=== PATIENT | female | born 1950 | race Caucasian/White ===

== ENCOUNTER 2020-02-28 01:00 | Outpatient (CLI) | payer MEDICARE, SELFPAY ==
[2020-02-28 17:34] LABS: SARS-CoV-2 RNA PCR Negative
== END 2020-02-28 01:01 | disposition home or self-care (01) ==
LOC: ANHCOVIDDT 01:01
PROVIDERS: PCP Internal Medicine; Visit Provider Internal Medicine Gastroenterology
DX: Z01.812 Encounter for preprocedural laboratory examination (principal); Z11.59 Encounter for screening for other viral diseases
CPT/HCPCS: 87635; C9803; U0003

== ENCOUNTER 2020-03-01 01:34 | Day surgery (SDC) | payer MEDICARE, SELFPAY ==
[2020-02-26 16:05] VITALS: BMI 28.5
[2020-03-01 09:45] VITALS: BP 133/75; PULSE 76; RESP 18; TEMP 36.3; O2SAT 99; BMI 28.5
--- NOTE | 2020-03-01 10:07 | P.PNAN_ITS ---
Anes - Initial Pre Proc Eval Procedure: Operation Date: 03/01/20 11:00 Proposed Procedures p Esophagogastroduodenoscopy & Colonoscopy - Joseph Borges MD Date/Time: 03/01/20 10:07 Surgeon: Joseph Borges MD Pre Op Diagnosis: Iron Deficiency Anemia Patient Data Age: 69 Gender: F Height: 1.73 m Weight: 85 kg Allergies Allergy/AdvReac Type Severity Reaction Status Date / Time bee pollen Allergy Unknown ANAPHYLAXIS Verified 03/01/20 10:11 codeine Allergy Unknown Hives Verified 03/01/20 10:11 erythromycin base Allergy Unknown Hives Verified 03/01/20 10:11 penicillin G Allergy Unknown HIVES Verified 03/01/20 10:11 Penicillins Allergy Unknown Hives Verified 03/01/20 10:11 Sulfa (Sulfonamide Allergy Unknown Hives Verified 03/01/20 10:11 Antibiotics) GARLIC Allergy Unknown THROAT Uncoded 03/01/20 10:11 SWELLING Home Medications Medication Instructions Recorded Confirmed Type bimatoprost 0.01 % eye drops 1 drop EACH EYE DAILY 11/17/19 02/26/20 History gabapentin 300 mg capsule 300 mg PO .qhs cap 11/17/19 02/26/20 History mecobalamin (vitamin B12) 1,000 1,000 mcg PO DAILY 11/17/19 02/26/20 History mcg chewable tablet multivitamin 1 tablet PO DAILY 11/17/19 02/26/20 History omega-3 fatty acids 1,000 mg 4,000 mg PO DAILY cap 11/17/19 02/26/20 History capsule atorvastatin 20 mg tablet 20 mg PO DAILY #90 tablet 12/14/19 03/01/20 Rx Patient hx anesthesia problems: none Family hx anesthesia problems: none PMFSH Past Medical History Medical History Cataracts, bilateral Cervical cancer Chicken pox Colon cancer Glaucoma HLD (hyperlipidemia) Hypercholesterolemia Measles Mumps MVP (mitral valve prolapse) Pneumonia Spine injury twisted lower 7 of spine TIA (transient ischemic attack) 1985 Torn muscle torn back muscles (shoulder to hips) Uterus cancer Vitamin D deficiency Surgical History Surgical History (Updated 11/17/19 @ 07:23 by Ashley Sabillon PLUSH WEAVER) H/O: hysterectomy 1970 History of colon resection 12cm removed Family History Family History (Updated 11/17/19 @ 07:24 by Ashley Sabillon CMA) Sibling TIA (transient ischemic attack) Father Cancer Mother Hypertension TIA (transient ischemic attack) Diabetes mellitus Social History Social History (Updated 11/17/19 @ 08:00 by Ashley Sabillon CMA) Smoking status: Former smoker Smoking end date: 09/06/12 Alcohol intake: never Gender identity (if verbalized by the patient): Female Anes - Eval Final PreProcedure Day of Procedure 03/01/20 10:07 Patient weight: overweight Heart: regular rate and rhythm Lungs: clear to auscultation and normal air movement Airway: Mallampati scale class III Neurological: alert and oriented Last oral intake: >/= 8 hours ASA classification: III Emergent: no Anesthetic plan: proceed Anesthesia type and monitoring: general GIVS and standard monitoring Informed Consent: The patient's anesthetic plan and its attendant risks and benefits were discussed with the patient/family/POA. Questions were solicited and answers provided to the satisfaction of the patient/family/POA.
--- NOTE | 2020-03-01 10:14 | PM.HPGS ---
History of Present Illness History of Present Illness Consent: Risks, benefits, and alternatives have been discussed and questions answered. Patient agrees to proceed with procedure. Chief complaint: Iron Deficiency Anemia Narrative: Yvonne Bridges is a 69 year old W female referred for gastroscopy and colonoscopy secondary to acute drop in her hemoglobin hematocrit. Patient has had occasional hematochezia. She does have a history of colon cancer with left hemicolectomy in 2015 stage IIIB. Patient received chemotherapy. There is no evidence recurrent disease. Patient's last colonoscopy was a year ago no abnormalities were noted except for internal hemorrhoids retained suture at the colorectal anastomosis. Patient does have chronic heartburn she takes [id number] medicine on a p.r.n. basis. She has never had upper endoscopy before. She was noted to have a large hiatal hernia on the CT scan by her report. Patient denies any dysphagia odynophagia. [facility] Past Medical History Medical History Cataracts, bilateral Cervical cancer Chicken pox Colon cancer Glaucoma HLD (hyperlipidemia) Hypercholesterolemia Measles Mumps MVP (mitral valve prolapse) Pneumonia Spine injury twisted lower 7 of spine TIA (transient ischemic attack) 1985 Torn muscle torn back muscles (shoulder to hips) Uterus cancer Vitamin D deficiency Surgical History Surgical History (Updated 11/17/19 @ 07:23 by Ashley Sabillon CMA) H/O: hysterectomy 1969 History of colon resection 12cm removed Family History Family History (Updated 11/17/19 @ 07:24 by Ashley Sabillon CMA) Sibling TIA (transient ischemic attack) Father Cancer Mother Hypertension TIA (transient ischemic attack) Diabetes mellitus Social History Social History (Updated 11/17/19 @ 08:00 by Ashley Sabillon CMA) Smoking status: Former smoker Smoking end date: 09/06/12 Alcohol intake: never Gender identity (if verbalized by the patient): Female Meds Home Medications and Allergies Home Medications Medication Instructions Recorded Confirmed Type bimatoprost 0.01 % eye drops 1 drop EACH EYE DAILY 11/17/19 02/26/20 History gabapentin 300 mg capsule 300 mg PO .qhs cap 11/17/19 02/26/20 History mecobalamin (vitamin B12) 1,000 1,000 mcg PO DAILY 11/17/19 02/26/20 History mcg chewable tablet multivitamin 1 tablet PO DAILY 11/17/19 02/26/20 History omega-3 fatty acids 1,000 mg 4,000 mg PO DAILY cap 11/17/19 02/26/20 History capsule atorvastatin 20 mg tablet 20 mg PO DAILY #90 tablet 12/14/19 03/01/20 Rx Allergies Allergy/AdvReac Type Severity Reaction Status Date / Time bee pollen Allergy Unknown ANAPHYLAXIS Verified 03/01/20 10:11 codeine Allergy Unknown Hives Verified 03/01/20 10:11 erythromycin base Allergy Unknown Hives Verified 03/01/20 10:11 penicillin G Allergy Unknown HIVES Verified 03/01/20 10:11 Penicillins Allergy Unknown Hives Verified 03/01/20 10:11 Sulfa (Sulfonamide Allergy Unknown Hives Verified 03/01/20 10:11 Antibiotics) GARLIC Allergy Unknown THROAT Uncoded 03/01/20 10:11 SWELLING Exam Const: Orientation/consciousness: patient oriented x3 Resp: Auscultation: clear to auscultation bilaterally Cardio: Rate: regular rate Rhythm: regular rhythm Heart sounds: no murmurs GI: GI Palp: Yes Soft to palpation, No Tenderness to palpation present (GI), Yes No hepatosplenomegaly present and No Palpable mass present Auscultation: normal bowel sounds Neuro: General: patient oriented x3 and no focal motor deficits Extrem: General: no pedal edema Assessment and Plan Additional Plan EGD and colonoscopy for evaluation of anemia
[2020-03-01] MEDS: LACTATED RINGERS 1,000 ML 150 ML IV CONT (10:30)
[2020-03-01 11:58] VITALS: BP 100/57; PULSE 55; RESP 27; O2SAT 100
[2020-03-01 12:08] VITALS: BP 113/62; PULSE 53; RESP 19; O2SAT 100
[2020-03-01 12:18] VITALS: BP 126/67; PULSE 52; RESP 16; O2SAT 100
--- NOTE | 2020-03-01 12:55 | SUR.PHASEII ---
PATIENT'S SPOUSE'S PHONE NUMBER WAS GIVEN TO DR SANCHEZ PER HIS REQUEST, SPOUSE STATED NO ONE CALLED HIM PRIOR TO PATIENT'S DISCHARGE
== END 2020-03-01 12:35 | disposition home or self-care (01) ==
PROVIDERS: PCP Internal Medicine; Visit Provider Internal Medicine Gastroenterology
PROC: 0DJ08ZZ Inspection of Upper Intestinal Tract, Via Natural or Artificial Opening Endoscopic (ICD-10-PCS; CPT 43235; principal; 2020-03-01 11:00)
DX: D64.9 Anemia, unspecified (principal); K31.9 Disease of stomach and duodenum, unspecified; K44.9 Diaphragmatic hernia without obstruction or gangrene; K22.2 Esophageal obstruction; K21.0 Gastro-esophageal reflux disease with esophagitis; K31.89 Other diseases of stomach and duodenum; K64.8 Other hemorrhoids; Z85.038 Personal history of other malignant neoplasm of large intestine; E78.5 Hyperlipidemia, unspecified; Z92.21 Personal history of antineoplastic chemotherapy; Z92.3 Personal history of irradiation
CPT/HCPCS: 43239; 45378; 88305; J2704; J7120

== ENCOUNTER 2020-04-26 08:28 | Outpatient (CLI) | payer MEDICARE, SELFPAY ==
--- NOTE | 2020-04-26 08:34 | EST_ITS ---
Patient Info Name: Yvonne Bridges Age: 69 years : 1950 Gender: Female Ht: 68 in Wt: 190 lbs BSA: 2.05 m2 Exam Date: 04/26/2020 8:51 AM Exam Location: [facility] [place] [facility] Patient Status: Outpatient Admit Date: 04/26/2020 Staff Ordering Physician: Concepción Davis NP Attending Provider: Concepción Davis NP Exercise Technologist: Sushma Walter RDCS Exercise Physician: Santosh Gonzales DO Exam Type: CA stress test treadmill Study Info Indications R94.31 - Abnormal electrocardiogram ECG EKG A treadmill exercise stress test was performed. Summary 1. 1. Negative Reed exercise stress test for ischemic ST changes by ECG criteria. 2. 2. Good functional capacity, achieving 7 METs of workload. 3. 3. Baseline hypertension with hypertensive response to exercise. 4. 4. Appropriate HR response to exercise. 5. 5. Appropriate HR recovery at 1 minute post exercise. 6. 6. No imaging with stress testing. 7. 7. Patient informed of the above results. Protocol: Reed Stress ECG Details Stage: REST Duration (min): 7 min : 51 sec Speed (mph): 0.0 Grade (%): 0 HR (bpm): 62 SBP (mmHg): 143 DBP (mmHg): 69 METS: --- Stage: REST Duration (min): 9 min : 33 sec Speed (mph): 0.0 Grade (%): 0 HR (bpm): 65 SBP (mmHg): 143 DBP (mmHg): 69 METS: --- Stage: REST Duration (min): 10 min : 28 sec Speed (mph): 0.0 Grade (%): 0 HR (bpm): 65 SBP (mmHg): 143 DBP (mmHg): 69 METS: --- Stage: REST Duration (min): 12 min : 0 sec Speed (mph): 0.0 Grade (%): 0 HR (bpm): 76 SBP (mmHg): 143 DBP (mmHg): 69 METS: --- Stage: STAGE 1 Duration (min): 1 min : 0 sec Speed (mph): 1.7 Grade (%): 10 HR (bpm): 92 SBP (mmHg): 143 DBP (mmHg): 69 METS: --- Stage: STAGE 1 Duration (min): 2 min : 0 sec Speed (mph): 1.7 Grade (%): 10 HR (bpm): 109 SBP (mmHg): 143 DBP (mmHg): 69 METS: --- Stage: STAGE 1 Duration (min): 3 min : 0 sec Speed (mph): 1.7 Grade (%): 10 HR (bpm): 119 SBP (mmHg): 163 DBP (mmHg): 65 METS: --- Stage: STAGE 2 Duration (min): 1 min : 0 sec Speed (mph): 2.5 Grade (%): 12 HR (bpm): 131 SBP (mmHg): 163 DBP (mmHg): 65 METS: --- Stage: STAGE 2 Duration (min): 2 min : 0 sec Speed (mph): 2.5 Grade (%): 12 HR (bpm): 141 SBP (mmHg): 193 DBP (mmHg): 65 METS: --- Stage: STAGE 2 Duration (min): 2 min : 0 sec Speed (mph): 2.5 Grade (%): 12 HR (bpm): 141 SBP (mmHg): 193 DBP (mmHg): 65 METS: --- Stage: RECOVERY Duration (min): 0 min : 59 sec Speed (mph): 0.0 Grade (%): 0 HR (bpm): 134 SBP (mmHg): 193 DBP (mmHg): 65 METS: --- Stage: RECOVERY Duration (min): 1 min : 59 sec Speed (mph): 0.0 Grade (%): 0 HR (bpm): 113 SBP (mmHg): 207 DBP (mmHg): 62 METS: ---
== END 2020-04-26 08:29 | disposition home or self-care (01) ==
PROVIDERS: PCP Internal Medicine; Visit Provider Nurse Practitioner
DX: R94.31 Abnormal electrocardiogram [ECG] [EKG] (principal)
CPT/HCPCS: 93017

== ENCOUNTER 2020-04-29 07:50 | Outpatient (CLI) | payer MEDICARE, SELFPAY ==
--- NOTE | ~2020-04-29 | US_ITS ---
EXAMINATION: US retroperitoneal comp DATE: 04/29/2020 08:55 INDICATION: Essential hypertension. TECHNIQUE: Multiple ultrasound grayscale images of the kidneys were obtained. COMPARISON: None. FINDINGS: The right kidney measures 9.1 x 4.4 x 4.5 cm. The left kidney measures 8.7 x 4.0 x 4.1 cm. The kidney s demonstrate normal echogenicity. There is no hydronephrosis in either kidney. No stones identified . The bladder is normal. No elevated velocities identified in the bilateral renal arteries to suggest hemodynamically significant stenosis. See separate retroperitoneal duplex Doppler ultrasound report for further detail. IMPRESSION: 1. Normal kidneys without hydronephrosis. Reviewed, dictated and finalized at location A.
--- NOTE | ~2020-04-29 | US_ITS ---
EXAMINATION: US retroperitoneal duplex ltd EXAM DATE: 04/29/2020 08:55 INDICATION: Elevated blood pressure. TECHNIQUE: Multiple grayscale and Doppler images of the kidneys and renal arteries were obtained. T here is no prior study for comparison. FINDINGS: The aorta peak systolic velocity is 97 cm/s. The right renal artery peak systolic velocity is 78 cm/s in the proximal segment, 121 cm/s in the mid segment, and 171 cm/s in the distal segment. The left r enal artery peak systolic velocity is 72 cm/s in the proximal segment, 71 cm/s in the mid segment, an d 70 cm/s in the distal segment. IMPRESSION: Renal artery Doppler velocities within normal limits. Reviewed, dictated and finalized at location A.
== END 2020-04-29 07:51 | disposition home or self-care (01) ==
PROVIDERS: PCP Internal Medicine; Visit Provider Nurse Practitioner
DX: I10 Essential (primary) hypertension (principal)
CPT/HCPCS: 76770; 93976

== ENCOUNTER 2020-07-23 11:42 | Outpatient (CLI) | payer MEDICARE, SELFPAY ==
--- NOTE | ~2020-07-23 | XR_ITS ---
XR chest 2V DATE: 07/23/2020 12:06 INDICATION: Cough TECHNIQUE: PA and lateral views COMPARISON: None FINDINGS: There is a large hiatal hernia. Normal heart size. Aortic calcification. No hilar or mediastinal enlargement. No pulmonary infiltrate or consolidation, pleural effusion or pulmonary vascular congestion or pneumothorax. There is scoliosis and degenerative change of the thoracic and lumbar spine. Moderate osteopenia is s uggested. IMPRESSION: No active cardiopulmonary disease Aortic atherosclerotic calcification Hiatal hernia Reviewed, dictated and finalized at location B. E EXAMINER
== END 2020-07-23 11:43 | disposition home or self-care (01) ==
PROVIDERS: PCP Internal Medicine; Visit Provider Clinical Nurse Specialist
DX: R05 Cough (principal); R06.02 Shortness of breath
CPT/HCPCS: 71046

== ENCOUNTER 2023-10-25 03:52 | Emergency (ER) | payer MEDICARE, SELFPAY ==
[2023-10-25] VITALS (8 sets, daily range): BP systolic 101–112; BP diastolic 42–57; PULSE 70; RESP 20; TEMP 36.4; O2SAT 93–100
--- NOTE | ~2023-10-25 | XR_ITS ---
Right wrist Technique: PA, oblique, lateral, and ulnar deviation views were obtained. Clinical History: Injury Findings: There is a comminuted fracture of the distal radius, with intra-articular extension and mil d articular surface step-off. There is dorsal angulation as well as significant dorsal displacement o n lateral view. There is posttraumatic positive ulnar variance. No other fracture evident. Soft tissu es are unremarkable. Impression: Comminuted, displaced, intra-articular fracture of the distal radius, as detailed above. Posttraumatic positive ulnar variance. Reviewed, dictated and finalized at location M. SETTER Impression: Comminuted, displaced, intra-articular fracture of the distal radius, as detail ed above. Posttraumatic positive ulnar variance.
--- NOTE | ~2023-10-25 | XR_ITS ---
Right wrist Technique: PA, oblique, lateral, and ulnar deviation views were obtained. Clinical History: Post reduction COMPARISON: 10/25/2023 at 4:38 AM Findings: Comminuted intra-articular fracture of the distal radius is again present. There is improve d alignment following closed reduction, though there is persistent significant dorsal displacement an d dorsal angulation. Posttraumatic positive ulnar variance is reduced, and alignment of the DRUJ is i mproved. Soft tissues are unremarkable. Impression: Improved alignment of comminuted intra-articular fracture of the distal radius following closed reduc tion, however there is persistent dorsal displacement and dorsal angulation. Reviewed, dictated and finalized at location M. ER ERECTOR AND SERVICER Impression: Improved alignment of comminuted intra-articular fracture of the distal radius following closed reduction, however there is persistent dorsal displacement and dorsal angulation.
[2023-10-25 04:24] LABS: Glucose Point of Care 196 mg/dl (65-105)
--- NOTE | 2023-10-25 04:39 | ED.GENADULT ---
HPI - General Adult General Chief complaint: Extremity Injury, Upper Stated complaint: Fall, R wrist pain Time Seen by Provider: 10/25/23 04:27 History of Present Illness HPI narrative: 73-year-old female presenting to the emergency department for evaluation of right wrist pain. Patient states she was getting into bed and fell backwards striking her head on the dresser and injuring her right wrist. Related Data Home Medications Medication Instructions Recorded Confirmed bimatoprost 0.01 % eye drops 1 drop ophthalmic (eye) DAILY 11/17/19 10/25/23 (Lumigan) gabapentin 300 mg capsule 300 mg PO .qhs 11/17/19 10/25/23 mecobalamin (vitamin B12) 1,000 1,000 mcg PO DAILY 11/17/19 10/25/23 mcg chewable tablet multivitamin 1 tablet PO DAILY 11/17/19 10/25/23 omega-3 fatty acids 1,000 mg 4,000 mg PO DAILY 11/17/19 10/25/23 capsule (Fish Oil Concentrate) Allergies Allergy/AdvReac Type Severity Reaction Status Date / Time bee pollen Allergy Unknown ANAPHYLAXIS Verified 10/25/23 15:54 codeine Allergy Unknown Hives Verified 10/25/23 15:54 erythromycin base Allergy Unknown Hives Verified 10/25/23 15:54 penicillin G Allergy Unknown HIVES Verified 10/25/23 15:54 Penicillins Allergy Unknown Hives Verified 10/25/23 15:54 Sulfa (Sulfonamide Allergy Unknown Hives Verified 10/25/23 15:54 Antibiotics) GARLIC Allergy Unknown THROAT Uncoded 10/25/23 15:54 SWELLING Review of Systems Review of Systems: All systems reviewed & are unremarkable except as noted in HPI and below PMFSH Past Medical History Medical History (Updated 10/26/23 @ 00:00 by [facility] Daemon) Anemia Cataracts, bilateral Cervical cancer Chicken pox Colon cancer Glaucoma HLD (hyperlipidemia) Hypercholesterolemia Measles Mumps MVP (mitral valve prolapse) Pneumonia Spine injury twisted lower 7 of spine TIA (transient ischemic attack) 1985 Torn muscle torn back muscles (shoulder to hips) Uterus cancer Vitamin D deficiency Surgical History Surgical History (Updated 11/17/19 @ 07:23 by Ashley Sabillon CMA) H/O: hysterectomy 1969 History of colon resection 12cm removed Family History Family History (Updated 11/17/19 @ 07:24 by Ashley Sabillon CMA) Sibling TIA (transient ischemic attack) Father Cancer Mother Hypertension TIA (transient ischemic attack) Diabetes mellitus Social History Social History (Updated 11/17/19 @ 08:00 by Ashley Sabillon CMA) Smoking status: Former smoker Smoking end date: 09/06/12 Alcohol intake: never Gender identity (if verbalized by the patient): Female Exam Narrative: APPEARANCE: Well appearing, no pain, no distress, well-nourished. HEAD: normocephalic, atraumatic. EYES: PERRLA/EOMI, conjunctivae clear. NOSE: Normal no drainage NECK: Supple. No adenopathy, no masses. RESPIRATORY: Airway patent, respirations nonlabored. Clear to auscultation bilaterally, no rales, rhonchi, wheezing. CARDIOVASCULAR: Regular rate and rhythm without murmurs rubs or gallops. ABDOMINAL: Soft, nontender, nondistended, normal bowel sounds MUSCULOSKELETAL: Tenderness to right wrist with deformity. Neurovascularly intact NEURO: Alert. Cranial nerves II through XII intact. grossly intact SKIN: Warm, dry. Normal Color PSYCHIATRIC: Normal affect/mood. Course Vital Signs Vital signs: Vital Signs Temperature 97.6 F 10/25/23 03:55 Pulse Rate 70 10/25/23 03:55 Respiratory Rate 20 10/25/23 03:55 Blood Pressure 104/42 L 10/25/23 03:55 Pulse Oximetry 99 10/25/23 03:55 Oxygen Delivery Room Air 10/25/23 03:55 Temperature 97.6 F 10/25/23 03:55 Pulse Rate 70 10/25/23 03:55 Respiratory Rate 20 10/25/23 03:55 Blood Pressure 101/57 L 10/25/23 05:31 Pulse Oximetry 100 10/25/23 05:32 Oxygen Delivery Room Air 10/25/23 03:55 Procedures Orthopedic Fracture Reduction Fracture #1: Time Out Performed: Yes Side: right Fracture Reduction
[2023-10-25] MEDS: fentaNYL CITRATE INJ (*CRX) 100 MCG/2 ML VIAL 50 MCG IV PUSH (04:50)
[2023-10-25] MEDS: HYDROmorphone HCL INJ (*CRX) 1 MG/ML SYR 0.5 MG IV PUSH (05:19)
[2023-10-25] MEDS: HYDROcodone/acetaminophen (*CRX) 5-325 MG TABLET 1 TAB PO (05:58)
== END 2023-10-25 06:10 | disposition home or self-care (01) ==
LOC: ANHED 05:53
PROVIDERS: Emergency Provider Emergency Medicine; PCP Family Medicine
DX: S52.571A Other intraarticular fracture of lower end of right radius, initial encounter for closed fracture (principal); I34.1 Nonrheumatic mitral (valve) prolapse; E78.00 Pure hypercholesterolemia, unspecified; E55.9 Vitamin D deficiency, unspecified; H40.9 Unspecified glaucoma; Z86.2 Personal history of diseases of the blood and blood-forming organs and certain disorders involving the immune mechanism; Z85.41 Personal history of malignant neoplasm of cervix uteri; Z85.42 Personal history of malignant neoplasm of other parts of uterus; Z87.01 Personal history of pneumonia (recurrent); Z86.73 Personal history of transient ischemic attack (TIA), and cerebral infarction without residual deficits; Z87.891 Personal history of nicotine dependence; Z90.710 Acquired absence of both cervix and uterus; Z90.49 Acquired absence of other specified parts of digestive tract; W06.XXXA Fall from bed, initial encounter
CPT/HCPCS: 25605; 73080; 73110; 82948; 96374; 96375; 99285; A4565; A9270; J1170; J3010

== ENCOUNTER 2023-10-25 16:27 | Outpatient (CLI) | payer MEDICARE, OTHER, SELFPAY ==
--- NOTE | ~2023-10-25 | XR_ITS ---
EXAM: XR elbow RT min 3V DATE: 10/25/2023 16:43 HISTORY: S52.509A - Unspecified fracture of the lower end of unspe... . COMPARISON: X-ray right wrist, same date. FINDINGS: Normal mineralization. No fracture or dislocation. No lytic or blastic lesion. Joint space s are maintained. No erosion or periosteal change. Displaced anterior fat pad. IMPRESSION: Right elbow joint effusion which can accompany occult radial head fractures in a patient of this age. Reviewed, dictated and finalized at location K. CTOR OF NEUROLOGY IMPRESSION: Right elbow joint effusion which can accompany occult radial head f ractures in a patient of this age.
== END 2023-10-25 16:28 | disposition home or self-care (01) ==
PROVIDERS: PCP Family Medicine; Visit Provider Plastic Surgery
DX: S52.501A Unspecified fracture of the lower end of right radius, initial encounter for closed fracture (principal); M25.421 Effusion, right elbow; X58.XXXA Exposure to other specified factors, initial encounter
CPT/HCPCS: 73080

== ENCOUNTER 2023-10-27 00:41 | Day surgery (SDC) | payer MEDICARE, SELFPAY ==
[2023-10-26 12:48] VITALS: BMI 25.0
--- NOTE | 2023-10-26 13:09 | PC.NURSE ---
Report to the Outpatient Waiting Room, entrance under the green pavilion located off [facility], at time __6:00AM on date __10/27/23 . Planned Procedure Time: ___7:30AM . Time changes happen often and if your time is changed the preop area will call you the afternoon before. - You and your visitor will be asked to self-screen and do not enter if you have any COVID symptoms. - A mask is optional within the hospital at this time. - No FOOD OR DRINK 8 HOURS PRE-OP, LAST INTAKE 11:30PM 10/26/23. Take the following medications with a SIP of water the morning of surgery: ____EYE DROPS. HYDROCODONE NEEDED FOR PAIN. DO NOT STOP ANY OF YOUR OTHER PRESCRIPTION MEDICATIONS PRIOR TO SURGERY ?EXCEPT THE FOLLOWING Medications to discontinue per physician ___HOLD ALL VITAMINS/SUPPLEMENTS 3 DAYS PRE-OP PER ANESTHESIA- STARTING NOW(10/26/23)__ Please no make-up, nail sammarinese, hairspray, perfume, deodorant, or body powder the day of surgery. No jewelry (including any body piercings) or valuables the day of surgery, leave them at home. Please take a shower or bath the night before, or the morning of, surgery with an antibacterial soap. Wear comfortable, loose fitting clothing. - Jewelry must be removed prior to entering the operating room. Rings and piercings that are not removed may be cut off. - The hospital will not accept responsibility for valuables. - Please leave all valuables, including medications, at home the day of surgery. If you are going home after surgery, a licensed bulk driver must drive you home. - NO public transportation without another adult if you receive anesthesia. - We recommend that an adult stay with you for 24 hours following discharge. - We also recommend that you do not drive, make important decision, drink alcoholic beverages, or take any drugs that were not prescribed by your health care provider for at least 24 hours after your discharge time. Follow any additional instructions given to you from your surgeon. If you or anyone in your household have experienced Covid symptoms in the past week, please notify your surgeon or the nurse liaison at the phone number below for possible testing. Telephone instructions given to ____PATIENT and asked if any additional questions and then verbalized understanding. Patient advised to call surgeon office or pre surgery nurse liaison [phone] if any additional questions.
[2023-10-27] VITALS (10 sets, daily range): BP systolic 105–141; BP diastolic 42–70; PULSE 53–73; RESP 12–20; TEMP 36.1–36.3; O2SAT 95–100
--- NOTE | ~2023-10-27 | XR_ITS ---
EXAMINATION: XR surgery orthopedic DATE: 10/27/2023 09:09 INDICATION: ORIF distal right radial fracture TECHNIQUE: 3 fluoroscopic images of the right wrist were obtained during procedure performed by Dr. Lotus kellogg. Radiologist was not present for the imaging or procedure. The amount of fluoroscopy time u sed during this procedure was 1.8 minutes. COMPARISON: 10/25/2023 FINDINGS: Initial image redemonstrates the posteriorly and radially displaced fracture of the distal radial met aphysis. Final image demonstrates reduction to near-anatomic alignment on the lateral projection with volar plate and screw fixation. IMPRESSION: 1. Near-anatomic alignment post volar plate and screw fixation of a distal right radial fracture. Reviewed, dictated and finalized at location A. [employer]PER[employer]OR IMPRESSION: 1. Near-anatomic alignment post volar plate and screw fixation of a distal righ t radial fracture.
--- NOTE | 2023-10-27 05:50 | ECG_ITS ---
Measurements Intervals [place] Rate: 71 P: 58 TN: 161 QRS: 52 QRSD: 84 T: 28 QT: 404 QTc: 439 Interpretive Statements SINUS RHYTHM WITH OCCASIONAL SUPRAVENTRICULAR PREMATURE COMPLEXES POOR R-WAVE PROGRESSION BORDERLINE ECG NO PREVIOUS ECG AVAILABLE FOR COMPARISON Electronically Signed On 10-27-2023 16:22:37 MANAGER IT SECURITY by Naeem Hernandez M.D.
[2023-10-27] MEDS: LACTATED RINGERS 1,000 ML 30 ML IV CONT ×2 (06:45→09:28)
--- NOTE | 2023-10-27 06:45 | WPDANESEPPF ---
Anes - Initial Pre Proc Eval Procedure: Operation Date: 10/27/23 07:30 Proposed Procedures p Open Reduction Internal Fixation Right Distal Radius Fracture - Femi Perez MD Date/Time: 10/27/23 06:45 Surgeon: Femi Perez MD Pre Op Diagnosis: unspec lower radius fax Patient Data Age: 73 Gender: F Height: 1.78 m Weight: 79 kg Allergies Allergy/AdvReac Type Severity Reaction Status Date / Time bee pollen Allergy Unknown ANAPHYLAXIS Verified 10/27/23 06:17 codeine Allergy Unknown Hives Verified 10/27/23 06:17 erythromycin base Allergy Unknown Hives Verified 10/27/23 06:17 Penicillins Allergy Unknown Hives Verified 10/27/23 06:17 Sulfa (Sulfonamide Allergy Unknown Hives Verified 10/27/23 06:17 Antibiotics) GARLIC Allergy Unknown THROAT Uncoded 10/27/23 06:17 SWELLING Home Medications Medication Instructions Recorded Confirmed Type bimatoprost 0.01 % eye drops 1 drop ophthalmic (eye) QAM 11/17/19 10/26/23 History (Lumigan) mecobalamin (vitamin B12) 1,000 1,000 mcg PO DAILY 11/17/19 10/26/23 History mcg chewable tablet multivitamin 1 tablet PO DAILY 11/17/19 10/26/23 History atorvastatin 20 mg tablet See Rx Instructions .Route 04/20/22 10/26/23 Rx .COMPLEX #90 tabs hydrocodone 5 mg-acetaminophen 325 1 tablet PO Q12H PRN pain #14 tabs 10/25/23 10/26/23 Rx mg tablet icosapent ethyl 1 gram capsule 2 g PO BID 10/26/23 10/26/23 History (Vascepa) lisinopril 10 mg tablet 10 mg PO HS 10/26/23 10/26/23 History metformin 500 mg tablet 500 mg PO BID 10/26/23 10/26/23 History omeprazole 40 mg capsule,delayed 40 mg PO DAILY 10/26/23 10/26/23 History release Patient hx anesthesia problems: none Family hx anesthesia problems: none Results Review: All pre-operative results and documents have been reviewed as part of the pre-operative evaluation. [facility], LAT[facility] Past Medical History Medical History Anemia Cataracts, bilateral Cervical cancer Chicken pox Colon cancer Glaucoma HLD (hyperlipidemia) Hypercholesterolemia Measles Mumps MVP (mitral valve prolapse) Pneumonia Spine injury twisted lower 7 of spine TIA (transient ischemic attack) 1985 Torn muscle torn back muscles (shoulder to hips) Uterus cancer Vitamin D deficiency Surgical History Surgical History H/O: hysterectomy 1969 History of colon resection 12cm removed Family History Family History Sibling TIA (transient ischemic attack) Father Cancer Mother Hypertension TIA (transient ischemic attack) Diabetes mellitus Social History Social History Smoking packs per day: 1 Smoking cigarettes per day: 20.0 Years smoked: 40 Smoking pack-years: 40.00 Smoking status: Former smoker Tobacco type: cigarettes Smoking end date: 03/06/12 Alcohol intake: never Living arrangements: with family Additional living arrangements comments: [place] Gender identity (if verbalized by the patient): Female Spiritual care concerns: No Anes - Eval Final PreProcedure Day of Procedure 10/27/23 06:45 Patient weight: normal Heart: regular rate and rhythm Lungs: clear to auscultation Airway: Mallampati scale class III Neurological: alert and oriented Last oral intake: >/= 8 hours ASA classification: IV Emergent: no Anesthetic plan: proceed Anesthesia type and monitoring: general LMA and standard monitoring Results Review: All pre-operative results and documents have been reviewed as part of the pre-operative evaluation. Informed Consent: The patient's anesthetic plan and its attendant risks and benefits were discussed with the patient/family/POA. Questions were solicited and answers provided to the satisfaction of the patient/family/POA.
--- NOTE | 2023-10-27 07:00 | PM.HPGS ---
History of Present Illness History of Present Illness Chief complaint: unspec lower radius fax Narrative: Patient seen and examined in pre-operative holding area. No interval change in medical history or symptoms. Patient recalls previous discussion of benefits and alternatives to procedure. Continues to desire to proceed with right distal radius open reduction internal fixation. Reviewed procedure, post-op expectations and risks including but not limited to bleeding, infection, injury to tendon/nerve/vessel, decreased hand function, stiffness, RSD, no change or worsening of symptoms, malunion, nonunion, hardware complications. I discussed the possible use of assistants and their participation in the case. Patient stated understanding and signed the consent form wishing to proceed. [facility] Past Medical History Medical History Anemia Cataracts, bilateral Cervical cancer Chicken pox Colon cancer Glaucoma HLD (hyperlipidemia) Hypercholesterolemia Measles Mumps MVP (mitral valve prolapse) Pneumonia Spine injury twisted lower 7 of spine TIA (transient ischemic attack) 1985 Torn muscle torn back muscles (shoulder to hips) Uterus cancer Vitamin D deficiency Surgical History Surgical History H/O: hysterectomy 1969 History of colon resection 12cm removed Family History Family History Sibling TIA (transient ischemic attack) Father Cancer Mother Hypertension TIA (transient ischemic attack) Diabetes mellitus Social History Social History Smoking packs per day: 1 Smoking cigarettes per day: 20.0 Years smoked: 40 Smoking pack-years: 40.00 Smoking status: Former smoker Tobacco type: cigarettes Smoking end date: 03/06/12 Alcohol intake: never Living arrangements: with family Additional living arrangements comments: [place] Gender identity (if verbalized by the patient): Female Spiritual care concerns: No Meds Home Medications and Allergies Home Medications Medication Instructions Recorded Confirmed Type bimatoprost 0.01 % eye drops 1 drop ophthalmic (eye) QAM 11/17/19 10/26/23 History (Boni) mecobalamin (vitamin B12) 1,000 1,000 mcg PO DAILY 11/17/19 10/26/23 History mcg chewable tablet multivitamin 1 tablet PO DAILY 11/17/19 10/26/23 History atorvastatin 20 mg tablet See Rx Instructions .Route 04/20/22 10/26/23 Rx .COMPLEX #90 tabs hydrocodone 5 mg-acetaminophen 325 1 tablet PO Q12H PRN pain #14 tabs 10/25/23 10/26/23 Rx mg tablet icosapent ethyl 1 gram capsule 2 g PO BID 10/26/23 10/26/23 History (Vascepa) lisinopril 10 mg tablet 10 mg PO HS 10/26/23 10/26/23 History metformin 500 mg tablet 500 mg PO BID 10/26/23 10/26/23 History omeprazole 40 mg capsule,delayed 40 mg PO DAILY 10/26/23 10/26/23 History release Allergies Allergy/AdvReac Type Severity Reaction Status Date / Time bee pollen Allergy Unknown ANAPHYLAXIS Verified 10/27/23 06:17 codeine Allergy Unknown Hives Verified 10/27/23 06:17 erythromycin base Allergy Unknown Hives Verified 10/27/23 06:17 Penicillins Allergy Unknown Hives Verified 10/27/23 06:17 Sulfa (Sulfonamide Allergy Unknown Hives Verified 10/27/23 06:17 Antibiotics) GARLIC Allergy Unknown THROAT Uncoded 10/27/23 06:17 SWELLING
--- NOTE | 2023-10-27 07:00 | W.PM.PROC2 ---
Procedure Note - Detailed Date of Procedure 10/27/23 Pre-op Diagnosis right distal radius fracture Post-op Diagnosis Same Procedure Performed open reduction internal fixation right distal radius fracture Surgeon Femi Perez MD Per Assessment Nurse Marzena Deutsch PA-C Anesthesia General Description of Procedure INFORMED CONSENT: The patient was seen and examined and marked in the pre-op area.? The patient signed the consent form. PROCEDURE IN DETAIL:The patient taken back to OR on the stretcher in supine position. Time out performed with anesthesia, surgeon and staff agreeing on patient's name site and surgery to be performed SCDs were placed on the lower extremities and inflated. A tourniquet was placed on {right} upper extremity and antibiotics given IV After anesthesia administered sedation I injected {10}cc 1%lido with epi and 0.5% marcaine plain at the operative site The?{right upper extremity}?was prepped and draped in sterile fashion the??{right upper extremity} was? exsanguinated with Esmarch bandage and tourniquet inflated to 250mmHg I proceeded with making a longitudinal incision (volar noe approach) with 15 blade through skin and dermis over the right FCR tendon. Littler scicsors were used to spread down to the tendon which was retracted ulnarly. I made an incision in the floor of the FCR sheath protecting neurovascular bundle and retracting radially throughout the procedure. I spread down to the pronator quadratus. I incised the PQ along the radial side and used a calles elevator to free the PQ and expose the fracture line. I released brachioradialis. I proceeded with reduction and provisional placement of a 0.045 k-wire. Reduction was verified with mini c-arm. I proceeded with placing an Arthrex narrow right volar distal radius plate and tacking it into place with BB tack and k-wire. Plate placement was checked on fluoro then I proceeded with securing the plate in standard fashion using 2.4mm screws and pegs locking distally and proximal 3.5mm locking and cortical screws. Multiple views of fluoro were used noting maintenance of reduction, no proud screws and no intrarticular placement. After this was completed the k-wires and BB tacks were removed and further exam with fluoro noting maintenance of reduction and good hardware placement. the DRUJ appeared stable. I irrigated with normal saline and proceeded with closure using 3-0 vicryl and 4-0 monocryl. 7cc of 1%lido and 0.5%marcaine plain were injected for median, ulnar and radial nerve blocks. A dressing of Dermabond, 4x4, jacob, and a volar splint was applied for patient safety, security, and comfort and secured with an jenn bandage after the tourniquet was let down noting the hand was warm and well perfused. The patient was then awaken from anesthesia and transferred to the recovery room in stable condition.? Complications - none EBL- 0cc Disposition - home in stable conditions Marzena Deutsch PA-C was essential for positioning, retraction ,manipulation, closure and dressing placement [facility] Billing Surgery - Charge Forward: Surgery Billing ([id number] same for marzena buenrostro )
[2023-10-27 07:06] LABS: Anion Gap 6 mmol/L (8-16); Blood Urea Nitrogen 15 mg/dL (7-17); Calcium 9.3 mg/dL (8.4-10.2); Carbon Dioxide 27 mmol/L (22-30); Chloride 105 mmol/L (98-107); Estimated CRCL calculation 52 ml/min; Estimated Glomerular Filt Rate > 60; Glucose 155 mg/dL (65-110); Sodium 138 mmol/L (137-145)
--- NOTE | 2023-10-27 07:25 | P.HPUP_ITS ---
History and Physical Update Update Date/Time: 10/27/23 07:25 Patient seen and examined in pre-operative holding area. No interval change in medical history or symptoms. Patient recalls previous discussion of benefits and alternatives to procedure. Continues to desire to proceed with right distal raidus open reduction internal fixation. Reviewed procedure, post-op expectations and risks including but not limited to bleeding, infection, injury to tendon/nerve/vessel, decreased hand function, stiffness, RSD, no change or worsening of symptoms, malunion, nonunion, hardware complications. I discussed the possible use of assistants and their participation in the case. Patient sta ashlee understanding and signed the consent form wishing to proceed.
[2023-10-27] MEDS: ceFAZolin 2 GM/D5W 50 ML 2 GM/50 ML BAG IVPB (07:30)
[2023-10-27] MEDS: BUPivacaine HCL 0.5% PF 30 ML VIAL 10 ML INFILTRATE (07:55)
[2023-10-27] MEDS: LIDOCAINE HCL 1% LOCAL INJ 20 ML VIAL 10 ML INFILTRATE (07:56)
[2023-10-27 09:25] LABS: Glucose Point of Care 137 mg/dl (65-105)
[2023-10-27] MEDS: fentaNYL CITRATE INJ (*CRX) 100 MCG/2 ML VIAL 25 MCG IV PUSH ×4 (09:26→09:53)
[2023-10-27] MEDS: ONDANSETRON INJ 4 MG/2 ML VIAL IV PUSH (09:41)
[2023-10-27] MEDS: oxyCODONE HCL (*CRX) 2.5 MG TAB IR PO (10:33)
== END 2023-10-27 11:16 | disposition home or self-care (01) ==
PROVIDERS: Anesthesiology; PCP Family Medicine; Visit Provider Plastic Surgery
PROC: (CPT 25607; principal; 2023-10-27 07:30)
DX: S52.501A Unspecified fracture of the lower end of right radius, initial encounter for closed fracture (principal); T14.90XA Injury, unspecified, initial encounter; E78.5 Hyperlipidemia, unspecified; E55.9 Vitamin D deficiency, unspecified; Z86.73 Personal history of transient ischemic attack (TIA), and cerebral infarction without residual deficits; Z85.41 Personal history of malignant neoplasm of cervix uteri; Z85.038 Personal history of other malignant neoplasm of large intestine
CPT/HCPCS: 25607; 36415; 80048; 82948; 93005; 99199; A9270; C1769; J0690; J1100; J1596; J2250; J2371; J2405; J2704; J3010; J7120

== ENCOUNTER 2023-11-04 08:30 | Outpatient (RCR) | payer MEDICARE, SELFPAY ==
--- NOTE | 2023-11-04 09:41 | OTOPEVAL1 ---
Assessment and note entered by Oliver Faye, LICHAR/Ping, CHT Evaluation Information Assessment Status Evaluation Diagnosis Right distal radius fracture s/p ORIF Subjective Information Patient underwent an ORIF on 10/27/23. She presents to therapy for instructions on hand ROM. She is right handed. She reports she is writing (typing) a book and has been doing this as well as finger ROM already. She feels like her hand is doing very well and that the swelling has reduced since surgery. Assessment OT Clinical Summary Patient presents today, 8 days following an ORIF for a right distal radius fracture. She presents with very minimal residual edema and stiffness in the fingers. She has been issued an active ROM HEP for the fingers and thumb and completes with excellent understanding. No further follow up visits were scheduled at this time. Plan to wait until we receive updated orders to begin wrist motion. These treatments will address the objective and functional deficits as defined above. The patient will be advanced safely and appropriately in order for the patient to progress towards his/her prior level of function. Additional exercises will be introduced and as well as a comprehensive home exercise program upon discharge, if needed, ?to ensure carryover of functional gains achieved in the clinic. This treatment plan has been reviewed and agreement upon by the patient.
== END 2023-11-04 11:28 | disposition home or self-care (01) ==
LOC: ANHOT 08:30
PROVIDERS: PCP Family Medicine; Visit Provider Physician Assistant Surgical
DX: S52.551D Other extraarticular fracture of lower end of right radius, subsequent encounter for closed fracture with routine healing (principal)
CPT/HCPCS: 97110; 97165

== ENCOUNTER 2023-11-16 14:58 | Outpatient (CLI) | payer MEDICARE, OTHER, SELFPAY ==
--- NOTE | ~2023-11-16 | XR_ITS ---
EXAM: XR wrist RT min 3V DATE: 11/16/2023 15:18 HISTORY: POST OP 1-2 WKS FOR WRIST FX . COMPARISON: 10/25/2023; 10/27/2023. FINDINGS: Decreased mineralization. Screw and plate fixation of the distal right radial fracture in near-anatomic alignment. Uncomplicated hardware. No new acute fracture or dislocation. No lytic or bl astic lesion. Joint spaces are mild scattered degenerative changes. No erosion or periosteal change. Soft tissues within normal limits. IMPRESSION: Osteopenia. Screw and plate fixation of the distal right radius, no radiographic evidence of hardware related complication. Reviewed, dictated and finalized at location K.
== END 2023-11-16 14:59 | disposition home or self-care (01) ==
PROVIDERS: PCP Family Medicine; Visit Provider Physician Assistant Surgical
DX: M85.88 Other specified disorders of bone density and structure, other site (principal); S52.501A Unspecified fracture of the lower end of right radius, initial encounter for closed fracture; X58.XXXA Exposure to other specified factors, initial encounter
CPT/HCPCS: 73110

== ENCOUNTER 2024-01-03 10:15 | Outpatient (CLI) | payer MEDICARE, SELFPAY ==
--- NOTE | ~2024-01-03 | XR_ITS ---
EXAMINATION: XR wrist RT min 3V DATE: 01/03/2024 10:36 INDICATION: Distal right radius fracture. TECHNIQUE: 4 views of right wrist were obtained. COMPARISON: Right wrist radiographs 11/16/2023 FINDINGS: There is a comminuted fracture of distal radius with involvement of the distal radioulnar j oint. The main distal fracture fragment demonstrates near-anatomic alignment status post reduction in ternal fixation with volar plate and screws. There is early callus formation. Joint spaces are normal . IMPRESSION: 1. Healing comminuted fracture of distal radius status post open reduction internal fixation. Reviewed, dictated and finalized at location A. IMPRESSION: 1. Healing comminuted fracture of distal radius status post open reduction inte rnal fixation.
== END 2024-01-03 10:16 | disposition home or self-care (01) ==
PROVIDERS: PCP Family Medicine; Visit Provider Physician Assistant Surgical
DX: S52.501D Unspecified fracture of the lower end of right radius, subsequent encounter for closed fracture with routine healing (principal)
CPT/HCPCS: 73110

== ENCOUNTER 2024-01-28 09:00 | Outpatient (RCR) | payer MEDICARE, SELFPAY ==
--- NOTE | 2023-11-19 14:09 | OTOPEVAL1 ---
Assessment and note entered by Oliver Faye, QUIANA/Ping, CHT Evaluation Information 11/19/23 Diagnosis Distal radius fracture s/p ORIF 10/27/23 Subjective Information Presents with hand in a brace. Orders are to begin wrist ROM x1 month after surgery. She reports residual swelling, stiffness, and soreness. She is right handed. 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 Reported Pain Level Pain Score 8/10 in the right hand Assessment OT Clinical Summary Patient presents ~3 weeks following right distal radius fracture s/p ORIF. She presents with residual pain, stiffness, and weakness limiting functional ROM and use. Skilled OT indicated for HEP instruction, therapeutic exercise, therapeutic activities, modalities, and manual therapy. Plan of Care Interventions Therapeutic Exercise,Manual Therapy,Therapeutic Activities,Paraffin OT Services Indicated Yes Treatment Frequency and 2x/week for 8 visits Duration These treatments will address the objective and functional deficits as defined above. The patient will be advanced safely and appropriately in order for the patient to progress towards his/her prior level of function. Additional exercises will be introduced and as well as a comprehensive home exercise program upon discharge, if needed, ?to ensure carryover of functional gains achieved in the clinic. This treatment plan has been reviewed and agreement upon by the patient.
--- NOTE | 2023-11-19 14:10 | OPREHPOC ---
Outpatient Therapy Plan of Care This is a Multidisciplinary Plan of Care that may contain components documented by all disciplines (PT, OT, and ST.) OT Problem 1 OT Problem #1 Knowledge Deficit OT Goal 1 Goal 1. Patient to be independent with instructed materials. Target Visit 9 OT Problem 2 OT Problem #2 Pain OT Goal 1 Goal 1. Patient to be independent with non-medication pain managmenet. Target Visit 9 OT Problem 3 OT Problem #3 Impaired Range of Motion OT Goal 1 Goal Increase active ROM on the right UE: - supination to 60 degrees - wrist flexion to 50 degrees - wrist extension to 50 degrees - finger flexion to measure no gap between the finger tips and the palm Target Visit 9
--- NOTE | 2023-12-16 10:42 | OTOPPROG ---
Assessment and note entered by Oliver Faye, QUIANA/Ping, CHT Progress Update 12/16/23 Diagnosis Distal radius fracture s/p ORIF 10/27/23 Subjective Information Patient presents today for progress update. 7 weeks s/p ORIF. She has participated in 8 OT sessions and has been very compliant with all materials. She verbalizes some concerns regarding her lack of progress. States she still cannot make a fist and the wrist is continuously very painful and sore. At rest she is reporting 8/10 pain across the wrist. Reports a constant burning sensation. Continues to have sensitivity, unable to tolerate hot temperatures. Increased pain on the ulnar side of the wrist with pronation. ROM measurements from the start of care: - pronation WNL, unchanged - supination improved from neutral to 35 deg. - wrist flexion improved from 30 to 40 deg. - wrist extension improved from 10 to 30 deg. - wrist RD remained at 10 deg. - wrist UD improved from 10 to 50 deg. - finger flexion has regressed some, finger tip to palm measurements today are 2-3 cm gap compared to 1-2 cm gap at the start of care; Passive finger flexion is WNL; Unable to tolerate any light gripping with putty due to pain. HEP includes active ROM and gentle passive ROM to patient's tolerance. Patient has sharp, burning pain with passive ROM of the wrist and forearm. Assessment OT Clinical Summary Patient continues to demonstrate significant functional limitations with right UE use due to residual pain, stiffness, weakness. She has been compliant with ROM HEP and tolerating some light passive ROM. She continues to be unable to lift objects, such as an empty glass, due to pain. ROM of the forearm and wrist have made progress. Sessions consist of manual tx for pain control, active ROM, active assisted ROM, and gentle passive. Functional activities have also been incorporated into session and she continues to practice these at home. Continued skilled OT indicated for HEP progression, therapeutic exercise, therapeutic activities, modalities, and manual therapy. Plan of Care Interventions Therapeutic Exercise,Manual Therapy,Therapeutic Activities,Paraffin OT Services Indicated Yes
--- NOTE | 2023-12-16 10:43 | OPREHPOC ---
Outpatient Therapy Plan of Care This is a Multidisciplinary Plan of Care that may contain components documented by all disciplines (PT, OT, and ST.) OT Problem 1 OT Problem #1 Knowledge Deficit OT Goal 1 Goal 1. Patient to be independent with instructed materials. ---OT POC UPDATE 12/16/23--- 1. Met, continue as HEP is progressed Target Visit 15 OT Problem 2 OT Problem #2 Pain OT Goal 1 Goal 1. Patient to be independent with non-medication pain management. ---OT POC UPDATE 12/16/23--- 1. Met, continue to address and treat pain Target Visit 15 OT Problem 3 OT Problem #3 Impaired Range of Motion OT Goal 1 Goal Increase active ROM on the right UE: - supination to 60 degrees - wrist flexion to 50 degrees - wrist extension to 50 degrees - finger flexion to measure no gap between the finger tips and the palm ---OT POC UPDATE 12/16/23--- 1. Pt is progressing, continue all of the above goals Target Visit 15
--- NOTE | 2024-01-28 10:17 | OTOPPROG ---
Assessment and note entered by Oliver Faye, OTR/L, CHT OT Progress Update 01/28/24 Diagnosis Distal radius fracture s/p ORIF 10/27/23 Subjective Information Patient presents today for progress update. 13 weeks s/p ORIF. She has participated in 14 OT sessions and has been very compliant with all materials. She reports overall there has been progress. She reports she is now able to make a fist and the wrist soreness is improving, but it continues to experience 5/10 pain in the wrist. This has improved from a constant 7/10 pain. She notes some days are worse than others . She continues to be very limited with hand use, noting being unable to crab picker items greater than 2 lbs. She reports improvements with writing, typing, and and using a fork -- light tasks. ROM measurements from the start of care: - pronation WNL, unchanged - supination improved from 35 deg. to 75 deg. - wrist flexion improved from 40 to 45 deg. - wrist extension improved from 30 to 45 deg. - wrist RD improved from 10 deg. to 20 deg. - wrist UD improved from 10 to 20 deg. - composite fist improved from 1-2 cm gap to normal limits, and she is now tolerating gripping into the putty with less pain - hook fist improved from 2-3 to 1-2 cm gap between the finger tips and DPC - she was able to vice president of nursing the dynamometer today, vice president of nursing is measuring 24 lbs, compared to 56 lbs. on the left side Assessment OT Clinical Summary Patient presents for OT reassessment today demonstrating improvements with motion, strength, and reduced pain. We have been able to progress to gentle strengthening of the wrist and vice president of nursing with putty. She continues to have limited use of the right hand/UE due to residual weakness and pain, which greatly restricts heavier lifting. Continued skilled OT indicated for continued use of modalities, manual therapy, and progressive therapeutic exercise to facilitate optimal functional use of her dominant UE. Plan of Care Interventions Therapeutic Exercise,Manual Therapy,Therapeutic Activities,Paraffin OT Services Indicated Yes Treatment Frequency and 1x/week for 5 visits Duration These treatments will address the objective and functional deficits as defined above. The titi
--- NOTE | 2024-01-28 10:17 | OPREHPOC ---
Outpatient Therapy Plan of Care This is a Multidisciplinary Plan of Care that may contain components documented by all disciplines (PT, OT, and ST.) OT Problem 1 OT Problem #1 Knowledge Deficit OT Goal 1 Goal 1. Patient to be independent with instructed materials. ---OT POC UPDATE 12/16/23--- 1. Met, continue as HEP is progressed ---OT POC UPDATE 01/28/24--- 1. Met Target Visit 20 OT Problem 2 OT Problem #2 Pain OT Goal 1 Goal 1. Patient to be independent with non-medication pain management. ---OT POC UPDATE 12/16/23--- 1. Met, continue to address and treat pain ---OT POC UPDATE 01/28/24--- 1. Met, continue to address and treat pain Target Visit 20 OT Problem 3 OT Problem #3 Impaired Range of Motion OT Goal 1 Goal Increase active ROM on the right UE: - supination to 60 degrees - wrist flexion to 50 degrees - wrist extension to 50 degrees - finger flexion to measure no gap between the finger tips and the palm ---OT POC UPDATE 12/16/23--- 1. Pt is progressing, continue all of the above goals ---OT POC UPDATE 01/28/24--- 1. supination - met; wrist flexion and extension have improved, but not met; finger flexion - met Target Visit 20 OT Problem 4 OT Problem #4 Impaired Strength OT Goal 1 Goal ---OT POC UPDATE 01/28/24--- NEW STRENGTH GOALS 1. Patient to increase right feather shaper strength to 40 lbs. 2. Patient to increase right gross wrist strength to be able to lift 4 lb. objects. Target Visit 20
--- NOTE | 2024-02-21 13:28 | PCOTNOTE ---
This treatment is being continued on visit number [id number]. Please see documentation on both accounts to view progress. Completed interventions, outcomes, and problems have been marked as Inactive to facilitate the copying of the Care plan routine for recurring accounts.
== END 2024-02-17 23:59 | disposition home or self-care (01) ==
LOC: ANHOT 09:00
PROVIDERS: PCP Family Medicine; Visit Provider Physician Assistant Surgical
DX: S52.509D Unspecified fracture of the lower end of unspecified radius, subsequent encounter for closed fracture with routine healing (principal)
CPT/HCPCS: 97110; 97140; 97165

== ENCOUNTER 2024-03-21 10:00 | Outpatient (RCR) | payer MEDICARE, SELFPAY ==
--- NOTE | 2024-02-21 13:28 | PCOTNOTE ---
The treatment documented on this account is a continuation of the treatment documented on visit number [id number]. Please see documentation on both accounts to view progress. The Plan of Care has been transitioned and updated within the new V#. I have addressed and agree with the discipline specific Problems, Interventions, and Goals for the current certification period. Completed interventions, outcomes, and problems have been marked as Inactive to facilitate the copying of the Care plan routine for recurring accounts.
--- NOTE | 2024-04-06 10:34 | OTOPDC ---
Assessment and note entered by Oliver Faye, OTR/Ping, CHT OT Discharge Notification 04/06/24 OT Clinical Summary Patient called to cancel her remaining appointments and to be discharged from therapy. Patient reports she underwent a brain tumor removal and is needing further treatment for that at this time. Please refer to report dated 01/28/24 for most recent progress update. Discharging OT.
== END 2024-04-06 11:44 | disposition home or self-care (01) ==
LOC: ANHOT 10:00
PROVIDERS: PCP Family Medicine; Visit Provider Physician Assistant Surgical
DX: S52.509D Unspecified fracture of the lower end of unspecified radius, subsequent encounter for closed fracture with routine healing (principal)
CPT/HCPCS: 97018; 97110; 97140